=== PATIENT | male | born 1980 | race Caucasian/White ===

== ENCOUNTER 2023-08-08 18:15 | Emergency (ER) | payer SELFPAY ==
[~2023-08-08] VITALS: Ht 180.3 cm; Wt 89.0 kg
[2023-08-08 18:34] VITALS: BP 124/93; PULSE 120; RESP 30; TEMP 98.4; O2SAT 96
[2023-08-08] MEDS: AZITHROMYCIN 500 MG in DEXTROSE 5% 250 ML IV ONE (19:35)
[2023-08-08 20:17] LABS: ANION GAP 14.4 (8-16); CARBON DIOXIDE 23.9 mmol/L (21-32); CREATININE 1.4 mg/dL (0.6-1.3); POTASSIUM 4.3 mmol/L (3.5-5.1)
[2023-08-08 20:22] LABS: ALBUMIN 2.5 g/dL (3.4-5.0); BILIRUBIN,DIRECT 0.3 mg/dL (0.0-0.3); TOTAL PROTEIN, SERUM 6.2 g/dL (6.4-8.2)
[2023-08-08] MEDS: ALBUTEROL 0.083% 2.5 MG/3 ML NEBU INH ONE (20:26)
[2023-08-08 20:28] VITALS: PULSE 116; RESP 16; RESP 19; O2SAT 99
[2023-08-08] MEDS ORDERED: methylPREDNISolone SS 125 MG/2 ML VIAL ONE (20:35)
[2023-08-08] MEDS ORDERED: WATER STERILE 10 ML MC ONE (20:35)
[2023-08-08] MEDS: methylPREDNISolone SS 125 MG in WATER STERILE 2 ML IV SCH (20:39)
[2023-08-08 20:40] LABS: BASOPHILS # (AUTO) 0.1 K/uL (0.00-0.22); BASOPHILS % (AUTO) 0.7 % (0.0-2.0); EOSINOPHILS # (AUTO) 0.1 K/uL (0-0.4); EOSINOPHILS % (AUTO) 1.2 % (0.0-4.0); HEMATOCRIT 36.5 % (36-52); HEMOGLOBIN 11.6 g/dL (12.0-18.0); LYMPHOCYTES # (AUTO) 2.3 K/uL (2.0-11.5); LYMPHOCYTES % (AUTO) 21.2 % (20.5-51.1); MEAN CORPUSCULAR HEMOGLOBIN 26 pg (27-31); MEAN CORPUSCULAR HGB CONC 32 g/dL (33-37); MEAN CORPUSCULAR VOLUME 81.3 fL (80-94); MONOCYTES # (AUTO) 0.8 K/uL (0.8-1.0); MONOCYTES % (AUTO) 7.9 % (1.7-9.3); NEUTROPHILS # (AUTO) 7.3 K/uL (1.8-7.7); PLATELET COUNT (AUTO) 363 K/uL (140-450); RED BLOOD CELL COUNT(AUTO) 4.48 MIL/uL (4.20-6.10); RED CELL DISTRIBUTION WIDTH 15.3 % (11.6-13.7); WHITE BLOOD COUNT (AUTO) 10.6 K/uL (4.8-10.8)
[2023-08-08] MEDS: MAG SULF 2000 MG/WATER PREMIX 50 ML IV ONE (20:43)
[2023-08-08] MEDS: FUROSEMIDE 40 MG/4 ML VIAL IVP SCH (20:46)
[2023-08-08] MEDS ORDERED: cefTRIAXone 1,000 MG VIAL ONE (20:59)
[2023-08-08] MEDS ORDERED: AZITHROMYCIN 500 MG INJ VIAL IV ONE (21:00)
[2023-08-08 21:06] LABS: APPEARANCE,URINE CLEAR (CLEAR); BILIRUBIN,URINE NEGATIVE (NEGATIVE); BLOOD, URINE NEGATIVE (NEGATIVE); COLOR,URINE YELLOW (YELLOW); LEUKOCYTE ESTERASE ,URINE NEGATIVE (NEGATIVE); NITRITE, URINE NEGATIVE (NEGATIVE); PROTEIN,URINE NEGATIVE (NEGATIVE); UGLUCOSE NEGATIVE (NEGATIVE); UROBILINOGEN,URINE 0.2 EU/dL (0.2 - 1)
[2023-08-08 21:15] LABS: BARBITURATE, URINE NEGATIVE ng/ml (NEG <=200)
[2023-08-08 21:16] LABS: AMPHETAMINE, URINE POSITIVE ng/ml (NEG <=1000); BENZODIAZEPINE, URINE NEGATIVE ng/mL (NEG <=200); CANNABINOID, URINE POSITIVE ng/mL (NEG <=50); COCAINE, URINE NEGATIVE ng/mL (NEG <=300); OPIATE, URINE NEGATIVE ng/mL (NEG <=2000); PHENCYCLIDINE SCREEN,URINE NEGATIVE ng/mL (NEG <=25)
[2023-08-08 22:00] VITALS: BP 128/93; PULSE 116; RESP 16; TEMP 98.4; O2SAT 99
== END 2023-08-08 22:00 | disposition left against medical advice (07) ==
LOC: MED 18:15
DX: I50.9 Heart failure, unspecified (principal); F15.129 Other stimulant abuse with intoxication, unspecified; J44.9 Chronic obstructive pulmonary disease, unspecified; F17.200 Nicotine dependence, unspecified, uncomplicated
CPT/HCPCS: 36415; 71045; 80048; 80076; 80305; 81003; 83880; 85025; 87040; 93005; 94640; 96365; 96366; 96368; 96375; 99285; J0456; J0696; J1940; J2919; J3475; J7613

== ENCOUNTER 2023-08-14 07:23 | Inpatient (IN) | payer MEDICAID ==
[~2023-08-14] VITALS: Ht 180.3 cm; Wt 90.7 kg
[2023-08-14 07:32] VITALS: BP 135/96; PULSE 112; RESP 20; TEMP 97.5; O2SAT 100
[2023-08-14 08:34] LABS: BASOPHILS # (AUTO) 0.1 K/uL (0.00-0.22); BASOPHILS % (AUTO) 0.7 % (0.0-2.0); EOSINOPHILS # (AUTO) 0.1 K/uL (0-0.4); EOSINOPHILS % (AUTO) 0.8 % (0.0-4.0); HEMATOCRIT 35.6 % (36-52); HEMOGLOBIN 11.4 g/dL (12.0-18.0); LYMPHOCYTES # (AUTO) 1.1 K/uL (2.0-11.5); LYMPHOCYTES % (AUTO) 8.8 % (20.5-51.1); MEAN CORPUSCULAR HEMOGLOBIN 26 pg (27-31); MEAN CORPUSCULAR HGB CONC 32 g/dL (33-37); MEAN CORPUSCULAR VOLUME 80.7 fL (80-94); MONOCYTES # (AUTO) 0.8 K/uL (0.8-1.0); MONOCYTES % (AUTO) 5.9 % (1.7-9.3); NEUTROPHILS # (AUTO) 10.8 K/uL (1.8-7.7); NEUTROPHILS % (AUTO) 83.8 % (42.2-75.2); PLATELET COUNT (AUTO) 341 K/uL (140-450); RED BLOOD CELL COUNT(AUTO) 4.41 MIL/uL (4.20-6.10); WHITE BLOOD COUNT (AUTO) 12.9 K/uL (4.8-10.8)
[2023-08-14 09:05] LABS: ANION GAP 13.1 (8-16); CALCIUM 8.5 mg/dL (8.5-10.1); CARBON DIOXIDE 26.1 mmol/L (21-32); CREATININE 1.3 mg/dL (0.6-1.3); POTASSIUM 4.2 mmol/L (3.5-5.1)
[2023-08-14] MEDS ORDERED: cefTRIAXone 1,000 MG VIAL ONE (09:18)
[2023-08-14 09:20] LABS: ALANINE AMINOTRANSFERASE 88 U/L (12-78); ALBUMIN 2.7 g/dL (3.4-5.0); ALKALINE PHOSPHATASE 140 U/L (50-136); ASPARTATE AMINOTRANSFERASE 48 U/L (15-37); BILIRUBIN,DIRECT 0.4 mg/dL (0.0-0.3); CREATINE KINASE, TOTAL 94 U/L (39-308); TOTAL BILIRUBIN 1.4 mg/dL (0.0-1.0); TOTAL PROTEIN, SERUM 6.3 g/dL (6.4-8.2)
[2023-08-14 09:30] LABS: LACTIC ACID 2.4 mmol/L (0.4-2.0)
[2023-08-14] MEDS: FUROSEMIDE 40 MG/4 ML VIAL IVP SCH ×2 (09:56→21:45)
[2023-08-14] MEDS ORDERED: ZOLPIDEM 5 MG TAB PO PRN (10:40)
[2023-08-14] MEDS ORDERED: ACETAMINOPHEN 325 MG TAB PO PRN (10:40)
[2023-08-14] MEDS ORDERED: AZITHROMYCIN 500 MG INJ VIAL IV ONE (10:40)
[2023-08-14] MEDS: AZITHROMYCIN 500 MG in DEXTROSE 5% 250 ML IV ONE (10:43)
[2023-08-14] MEDS ORDERED: ALBUTEROL 0.083% 2.5 MG/3 ML NEBU INH PRN (10:45)
[2023-08-14 11:13] LABS: AMPHETAMINE, URINE POSITIVE ng/ml (NEG <=1000); BARBITURATE, URINE NEGATIVE ng/ml (NEG <=200); BENZODIAZEPINE, URINE NEGATIVE ng/mL (NEG <=200); CANNABINOID, URINE POSITIVE ng/mL (NEG <=50); COCAINE, URINE NEGATIVE ng/mL (NEG <=300); OPIATE, URINE NEGATIVE ng/mL (NEG <=2000); PHENCYCLIDINE SCREEN,URINE NEGATIVE ng/mL (NEG <=25)
[2023-08-14] MEDS: ONDANSETRON 4 MG/2 ML VIAL IVP PRN (11:35)
[2023-08-14] MEDS: LORazepam 1 MG TAB PO PRN (11:35)
[2023-08-14 14:47] VITALS: BP 122/89; PULSE 118; O2SAT 97
[2023-08-14] MEDS: FUROSEMIDE 20 MG/2 ML VIAL IVP SCH (19:01)
[2023-08-14] MEDS: lisinopriL 5 MG TAB PO SCH (19:20)
[2023-08-14 19:29] VITALS: BP 118/86; PULSE 105; O2SAT 99
[2023-08-14 19:45] VITALS: PULSE 105; RESP 22; O2SAT 99
[2023-08-14] MEDS: LEVOFLOXACIN 750 MG/D5W PREMIX 150 ML IV SCH (21:45)
[2023-08-14 22:50] VITALS: PULSE 102
[2023-08-14 23:40] VITALS: PULSE 105; RESP 32; O2SAT 97
[2023-08-15] VITALS (12 sets, daily range): BP systolic 96–180; BP diastolic 57–88; PULSE 80–105; RESP 18–32; TEMP 97.3–97.8; O2SAT 96–100
[2023-08-15] MEDS: carvediloL 6.25 MG TAB PO SCH (08:21)
[2023-08-15] MEDS: SPIRONOLACTONE 25 MG TAB PO SCH (08:22)
[2023-08-15] MEDS: DOCUSATE SODIUM 100 MG GELCAP PO SCH (08:22)
[2023-08-16] VITALS (9 sets, daily range): BP systolic 92–121; BP diastolic 58–76; PULSE 87–103; RESP 18–24; TEMP 97.2–97.8; O2SAT 95–100
[2023-08-16] MEDS ORDERED: CARV3.122 PO (10:16)
[2023-08-16] MEDS ORDERED: LISI5TAB18 PO (10:16)
[2023-08-16] MEDS ORDERED: SPIR50TA PO (10:16)
== END 2023-08-16 17:15 | disposition home or self-care (01) | DRG 720 ==
LOC: MED 07:23 → UNDOADMIN 10:42 → MMU 10:42 → MTU 14:32 → MMU 21:44 → MTU 21:44
PROVIDERS: ADMIT Student in an Organized Health Care Education/Training Program; ATTEND Student in an Organized Health Care Education/Training Program
PROC: 5A09457 Assistance with Respiratory Ventilation, 24-96 Consecutive Hours, Continuous Positive Airway Pressure (ICD-10-PCS; principal; 2023-08-14)
DX: A41.9 Sepsis, unspecified organism (principal); J96.01 Acute respiratory failure with hypoxia; I50.43 Acute on chronic combined systolic (congestive) and diastolic (congestive) heart failure; J18.9 Pneumonia, unspecified organism; I42.9 Cardiomyopathy, unspecified; J44.0 Chronic obstructive pulmonary disease with (acute) lower respiratory infection; R65.20 Severe sepsis without septic shock; F12.920 Cannabis use, unspecified with intoxication, uncomplicated; Z79.899 Other long term (current) drug therapy; Z87.891 Personal history of nicotine dependence
CPT/HCPCS: 36415; 71045; 80048; 80076; 80305; 82550; 83605; 83880; 84484; 85025; 87040; 87081; 93005; 94660; 96365; 96367; 96375; 99291; J0456; J0696; J1940; J1956; J2405

== ENCOUNTER 2023-10-03 23:10 | Inpatient (IN) | payer MEDICAID ==
[~2023-10-03] VITALS: Ht 180.3 cm; Wt 83.5 kg
[~2023-10-03 23:10] MED LIST: CARV3.122 PO; LISI5TAB18 PO; SPIR50TA PO
[2023-10-03 23:49] VITALS: BP 135/94; PULSE 105; RESP 24; TEMP 97.6; O2SAT 99
--- NOTE | 2023-10-04 01:49 | NUR ---
TO BED 2 FOLLOWING TRIAGE
--- NOTE | 2023-10-04 01:50 | NUR ---
43 homeless male, c/o sob w/ chest pain x3 days, patient stated the last time he had this symptoms is when he got diagnosed with CHF. hx: CHF, HTN, fluid retention, enlarged heart NKA
[2023-10-04] MEDS: FUROSEMIDE 40 MG/4 ML VIAL IVP ONE (02:34)
[2023-10-04 02:37] LABS: BASOPHILS # (AUTO) 0.1 K/uL (0.00-0.22); EOSINOPHILS # (AUTO) 0.3 K/uL (0-0.4); EOSINOPHILS % (AUTO) 2.6 % (0.0-4.0); HEMOGLOBIN 12.6 g/dL (12.0-18.0); LYMPHOCYTES # (AUTO) 2.6 K/uL (2.0-11.5); LYMPHOCYTES % (AUTO) 23.5 % (20.5-51.1); MEAN CORPUSCULAR HEMOGLOBIN 26 pg (27-31); MEAN CORPUSCULAR HGB CONC 32 g/dL (33-37); MEAN CORPUSCULAR VOLUME 80.6 fL (80-94); MONOCYTES # (AUTO) 0.8 K/uL (0.8-1.0); MONOCYTES % (AUTO) 7.2 % (1.7-9.3); NEUTROPHILS # (AUTO) 7.4 K/uL (1.8-7.7); NEUTROPHILS % (AUTO) 65.7 % (42.2-75.2); PLATELET COUNT (AUTO) 312 K/uL (140-450); RED BLOOD CELL COUNT(AUTO) 4.84 MIL/uL (4.20-6.10); RED CELL DISTRIBUTION WIDTH 17.6 % (11.6-13.7); WHITE BLOOD COUNT (AUTO) 11.2 K/uL (4.8-10.8)
[2023-10-04 02:48] LABS: ANION GAP 15.4 (8-16); CALCIUM 8.9 mg/dL (8.5-10.1); CARBON DIOXIDE 21.9 mmol/L (21-32); CREATININE 1.1 mg/dL (0.6-1.3); POTASSIUM 4.3 mmol/L (3.5-5.1)
[2023-10-04 02:54] LABS: INR 1.2 (0.8-1.2); PARTIAL THROMBOPLASTIN TIME 24.6 secs (22-35.6); PROTHROMBIN TIME 12.5 secs (10.8-13.4)
[2023-10-04 02:55] LABS: ALANINE AMINOTRANSFERASE 24 U/L (12-78); ALBUMIN 3.2 g/dL (3.4-5.0); ALKALINE PHOSPHATASE 90 U/L (50-136); ASPARTATE AMINOTRANSFERASE 42 U/L (15-37); BILIRUBIN,DIRECT 0.1 mg/dL (0.0-0.3); TOTAL PROTEIN, SERUM 7.4 g/dL (6.4-8.2)
--- NOTE | 2023-10-04 05:31 | NUR ---
SPEAKING WITH BILLING AND QUALITY TECHNICIAN FOR [facility]
--- NOTE | 2023-10-04 06:00 | NUR ---
RESTING IN BED WITH EYES CLOSED RESPIRATIONS REGULAR AND UNLABORED
--- NOTE | 2023-10-04 07:28 | NUR ---
RERORT RECIEVE FROM [facility]LE. PT NON DISTRESS TO BE ADMITTED.
[2023-10-04 07:33] LABS: MAGNESIUM 1.5 mg/dL (1.8-2.4); PHOSPHORUS 3.4 mg/dL (2.5-4.9)
--- NOTE | 2023-10-04 07:37 | NUR ---
CALL GIVEN TO LONG ROD PT GOING TO TELE 119B
--- NOTE | 2023-10-04 07:37 | NUR ---
REPORT GIVEN TO LONG CARMEN GOING TO TELE 119B NO FURTHER QUESTIONS ASKED.
--- NOTE | 2023-10-04 07:40 | NUR ---
PT OFFERED BREAKFAST AT BEDSIDE
--- NOTE | 2023-10-04 08:00 | NUR ---
PT TRANFER TO THE FLOOR
--- NOTE | 2023-10-04 08:10 | NUR ---
GOT REPORT FROM ER NURSE, PT ARRIVED IN THE UNIT ORIENTED PT TO THE HOSPITAL ROOM , CALL LIGHT IN REACH , BED IN LOW POSITION , V.S OBTAINED , PT IN O2 2L NC WITH SATURATION IS 97%, ASSESSMENT IS DONE PT AWAKE ALERT X4 , PT DENIES ANY CHEST PAIN. [id number]
[2023-10-04] MEDS: lisinopriL 5 MG TAB PO SCH (09:25)
[2023-10-04] MEDS: SPIRONOLACTONE 50 MG TAB PO SCH (09:26)
[2023-10-04] MEDS: carvediloL 3.125 MG TAB PO SCH (09:26)
[2023-10-04] MEDS: MAGNESIUM OXIDE 400 MG TAB PO PRN (09:50)
[2023-10-04 10:17] VITALS: PULSE 102; RESP 24; O2SAT 97
--- NOTE | 2023-10-04 10:51 | NUR ---
PATIENT HAS BEEN SCREENED AND CATEGORIZED MODERATE NUTRITION RISK. PATIENT WILL BE SEEN WITHIN 3-5 DAYS OF ADMISSION. 10/07/23 10/09/[address]
--- NOTE | 2023-10-04 11:23 | NUR ---
MADE ROUND PT SLEEPING THE NC ON AND SAFETY MEASURES IN PLACE. [id number]
[2023-10-04 12:00] VITALS: BP 111/88; PULSE 101; PULSE 104; RESP 24; TEMP 97.4; O2SAT 97
--- NOTE | 2023-10-04 12:30 | NUR ---
PT WALKED TO THE NURSES STATION AND SECURED HIS IV AND TOOK HIM BACK TO THE ROOM, REMINDED HIM TO CALL IF HE NEEDS ME
--- NOTE | 2023-10-04 14:57 | NUR ---
PT SLEEPING BED IN LOW POSITION CALL LIGHT IN REACH
--- NOTE | 2023-10-04 15:42 | NUR ---
STARTED NEW IV ON THE R FOREARM WITH 22 G , PT ASKED FOR SNACK PROVIDED . [id number]
[2023-10-04 16:00] VITALS: BP 100/77; PULSE 100; PULSE 99; RESP 20; TEMP 97.7; O2SAT 93
[2023-10-04] MEDS ORDERED: POTASSIUM CHLORIDE 10 MEQ TABER PO PRN (17:30)
[2023-10-04] MEDS: ONDANSETRON 4 MG/2 ML VIAL IVP PRN (17:48)
[2023-10-04] MEDS: HYDROcodone/APAP 5/325 MG 1 TAB TAB PO PRN (17:53)
--- NOTE | 2023-10-04 17:55 | NUR ---
PT COMPLAINING OF ABD PAIN, AND ALSO HE SAID HE VOMITED , GIVEN NORCO AND ZOFRAN ORDERED
--- NOTE | 2023-10-04 18:01 | NUR ---
ORDERED MECHANICAL SOFT DIET FOR DINNER AFTER THE SWALLOW EVAL
[2023-10-04 18:35] LABS: APPEARANCE,URINE SL CLOUDY (CLEAR); BILIRUBIN,URINE NEGATIVE (NEGATIVE); BLOOD, URINE NEGATIVE (NEGATIVE); COLOR,URINE ORANGE (YELLOW); LEUKOCYTE ESTERASE ,URINE NEGATIVE (NEGATIVE); NITRITE, URINE NEGATIVE (NEGATIVE); PH,URINE 7.5 (5.0-9.0); PROTEIN,URINE NEGATIVE (NEGATIVE); UGLUCOSE NEGATIVE (NEGATIVE)
[2023-10-04 19:14] LABS: AMPHETAMINE, URINE NEGATIVE ng/ml (NEG <=1000); BARBITURATE, URINE NEGATIVE ng/ml (NEG <=200); BENZODIAZEPINE, URINE NEGATIVE ng/mL (NEG <=200); CANNABINOID, URINE POSITIVE ng/mL (NEG <=50); COCAINE, URINE NEGATIVE ng/mL (NEG <=300)
[2023-10-04 19:15] LABS: OPIATE, URINE NEGATIVE ng/mL (NEG <=2000); PHENCYCLIDINE SCREEN,URINE NEGATIVE ng/mL (NEG <=25)
--- NOTE | 2023-10-04 19:20 | NUR ---
RECD. REPORT FROM JAMES ROD, PATIENT SITTING ON BED, AWAKE, A/OX4. RESPIRATION EVEN AND UNLABORED. WATCHING TV. NOTED OCCASIONAL UNPRODUCTIVE COUGH. OFF 02 CANNULA BUT 02 SAT 94% ON ROOM AIR. USES THE URINAL, ABLE TO AMBULATE BY HIMSELF. DENIES PAIN 0/10.
--- NOTE | 2023-10-04 19:30 | NUR ---
GIVEN THE REPORT TO THE NIGHT NURSE FOR CONTINUITY OF CARE PT IS STABLE [id number]
[2023-10-04 20:00] VITALS: BP 105/73; PULSE 85; RESP 20; TEMP 98.4; O2SAT 94
[2023-10-04 20:15] VITALS: PULSE 87
[2023-10-05] VITALS: BP 113/79; PULSE 87; PULSE 96; RESP 20; TEMP 97.8; O2SAT 95
[2023-10-05 00:23] VITALS: PULSE 96
--- NOTE | 2023-10-05 00:45 | NUR ---
INFORMED CAMMIE SARGENT INTERNATIONAL ACCOUNT REPRESENTATIVE SURVEILLANCE INVESTIGATOR FOR DR THOMAS, PATIENT COMPLAINING OF ABDOMINAL PAIN. ORDERED MAALOX TO BE GIVEN AND JUST TYLENOL FOR PAIN.
[2023-10-05] MEDS: ALUMINUM HYD/MAG/SIMETHICONE 30 ML UDC PO PRN (00:57)
[2023-10-05] MEDS: ACETAMINOPHEN 325 MG TAB PO PRN (01:05)
--- NOTE | 2023-10-05 01:45 | NUR ---
SLEEPING COMFORTABLY IN BED, RESPIRATION EVEN AND UNLABORED.
[2023-10-05 04:00] VITALS: BP 110/83; PULSE 93; RESP 20; TEMP 97.6; O2SAT 95
[2023-10-05 04:01] VITALS: PULSE 96
--- NOTE | 2023-10-05 05:31 | NUR ---
VOMITED SMALL AMOUNT OF LIQUIDS, MEDICATED WITH ZOFRAN PER MD ORDER BY FRANCISCO JAVIER ROD.
[2023-10-05 05:45] LABS: BASOPHILS # (AUTO) 0.1 K/uL (0.00-0.22); EOSINOPHILS # (AUTO) 0.2 K/uL (0-0.4); EOSINOPHILS % (AUTO) 2.1 % (0.0-4.0); HEMATOCRIT 36.3 % (36-52); HEMOGLOBIN 11.9 g/dL (12.0-18.0); LYMPHOCYTES # (AUTO) 2.4 K/uL (2.0-11.5); LYMPHOCYTES % (AUTO) 26.5 % (20.5-51.1); MEAN CORPUSCULAR HEMOGLOBIN 26 pg (27-31); MEAN CORPUSCULAR HGB CONC 33 g/dL (33-37); MEAN CORPUSCULAR VOLUME 78.6 fL (80-94); MONOCYTES # (AUTO) 0.6 K/uL (0.8-1.0); MONOCYTES % (AUTO) 6.5 % (1.7-9.3); NEUTROPHILS # (AUTO) 5.7 K/uL (1.8-7.7); NEUTROPHILS % (AUTO) 63.9 % (42.2-75.2); PLATELET COUNT (AUTO) 302 K/uL (140-450); RED BLOOD CELL COUNT(AUTO) 4.62 MIL/uL (4.20-6.10); RED CELL DISTRIBUTION WIDTH 17.4 % (11.6-13.7)
[2023-10-05 06:21] LABS: ALBUMIN 2.9 g/dL (3.4-5.0); ANION GAP 14.9 (8-16); CARBON DIOXIDE 24.7 mmol/L (21-32); CREATININE 1.3 mg/dL (0.6-1.3); MAGNESIUM 1.9 mg/dL (1.8-2.4); PHOSPHORUS 3.9 mg/dL (2.5-4.9); POTASSIUM 4.6 mmol/L (3.5-5.1); TOTAL BILIRUBIN 1.3 mg/dL (0.0-1.0); TOTAL PROTEIN, SERUM 6.5 g/dL (6.4-8.2)
--- NOTE | 2023-10-05 06:30 | NUR ---
NO NAUSEA OR VOMITING NOTED.
--- NOTE | 2023-10-05 07:25 | NUR ---
ENDORSED TO AM SHIFT NURSE FOR CONTINUITY OF CARE.
--- NOTE | 2023-10-05 07:26 | NUR ---
RECEIVED REPORT FROM NIGHT RN FOR CONTINUITY OF CARE, PATIENT IS ASLEEP WITH NO SIGNS OF DISTRESS, VISIBLE RISE AND FALL OF THE CHEST, CALL LIGHT WITHIN REACH.
[2023-10-05 08:00] VITALS: BP 109/78; PULSE 84; PULSE 95; RESP 18; TEMP 97.1; O2SAT 100
[2023-10-05] MEDS: FUROSEMIDE 40 MG/4 ML VIAL IVP SCH (09:00)
--- NOTE | 2023-10-05 09:15 | NUR ---
RECEIVED ORDER FOR PATIENT TO GET RESOURCES FOR HOMELESSNESS AND SUBSTANCE USE. WENT TO [facility] AND GAVE RESOURCE PACKET AND PATIENT THANKFUL
[2023-10-05] MEDS ORDERED: CARV3.122 PO ×2 (11:40→16:11)
[2023-10-05] MEDS ORDERED: LISI5TAB18 PO ×2 (11:40→16:09)
[2023-10-05] MEDS ORDERED: SPIR50TA PO ×3 (11:40→16:10)
[2023-10-05 12:24] VITALS: BP 109/78; PULSE 84; RESP 18; TEMP 97.1
--- NOTE | 2023-10-05 12:45 | NUR ---
SW ASSESSMENT Addendum: 10/05/23 at 1246 by Travis ALVARADO Amended: Links added.
--- NOTE | 2023-10-05 13:20 | NUR ---
PT WAS DISCHARGED. ID BAND AND IV REMOVED. DISCHARGE PAPERS AND TEACHINGS GIVEN. LEFT THE UNIT WALKING STEADILY AND WITH NO SOB. NO SIGN OF DISTRESS.
[2023-10-05] MEDS ORDERED: LISI5TAB24 PO (15:50)
== END 2023-10-05 16:01 | disposition home or self-care (01) | DRG 194 ==
LOC: MED 23:10 → MTU 10-04 05:55
PROVIDERS: ADMIT Student in an Organized Health Care Education/Training Program; ATTEND Student in an Organized Health Care Education/Training Program
DX: I50.23 Acute on chronic systolic (congestive) heart failure (principal); J96.00 Acute respiratory failure, unspecified whether with hypoxia or hypercapnia; I27.20 Pulmonary hypertension, unspecified; E44.0 Moderate protein-calorie malnutrition; F19.10 Other psychoactive substance abuse, uncomplicated; F12.90 Cannabis use, unspecified, uncomplicated; E83.42 Hypomagnesemia; Z79.899 Other long term (current) drug therapy; Z88.8 Allergy status to other drugs, medicaments and biological substances; Z68.25 Body mass index [BMI] 25.0-25.9, adult
CPT/HCPCS: 36415; 71045; 80048; 80053; 80076; 80305; 81003; 83735; 83880; 84100; 84484; 85025; 85610; 85730; 87081; 93005; 96374; 99285; J1940; J2405; Q0092